=== PATIENT | female | born 1980 | race African-American/Black ===

== ENCOUNTER 2016-03-15 17:01 | Emergency (ER) | payer SELFPAY ==
--- NOTE | 2016-03-15 20:11 | ER Document Report ---
ED General - General Chief Complaint: Abscess Stated Complaint: POSSIBLE VAGINAL ABSCESS Information source: Patient TRAVEL OUTSIDE OF THE [place] IN LAST 30 DAYS: No - HPI Onset: Yesterday Quality of pain: Burning, Throbbing Severity: Mild Pain Level: 2 Context: WEEPINING LESIONS TO GRION AREA FOR SEVERAL DAYS HISTORY OF THE SAME WITH FOLICULITIS - Related Data Allergies/Adverse Reactions: No Known Allergies Allergy (Verified 03/15/16 18:49) Past Medical History - Social History Smoking Status: Current Every Day Smoker Chew tobacco use (# tins/day): No Frequency of alcohol use: None Drug Abuse: None Family History: None Patient has suicidal ideation: No Patient has homicidal ideation: No - Past Medical History Cardiac Medical History: Reports: Hx Hypertension Pulmonary Medical History: Reports: Hx COPD Neurological Medical History: Denies: Hx Seizures Skin Medical History: Reports Hx MRSA Past Surgical History: Reports: Hx Orthopedic Surgery - LEFT SHOULDER; RIGHT GREAT TOE (MRSA) - Immunizations Hx Diphtheria, Pertussis, Tetanus Vaccination: Yes Review of Systems - Review of Systems Constitutional: No symptoms reported EENT: No symptoms reported Cardiovascular: No symptoms reported Respiratory: No symptoms reported Gastrointestinal: No symptoms reported Genitourinary: No symptoms reported Female Genitourinary: No symptoms reported Musculoskeletal: No symptoms reported Skin: Other - WEEPING LESIONS TO GRION Hematologic/Lymphatic: Other Neurological/Psychological: No symptoms reported Physical Exam - Vital signs Vitals: Temp Pulse Resp BP Pulse Ox 98.0 F 106 H 18 124/88 H 99 03/15/16 17:10 03/15/16 17:10 03/15/16 17:10 03/15/16 17:10 03/15/16 17:10 Interpretation: Normal - General General appearance: Appears well, Alert - HEENT Head: Normocephalic, Atraumatic Eyes: Normal Pupils: PERRL - Respiratory Respiratory status: No respiratory distress Chest status: Nontender Breath sounds: Normal Chest palpation: Normal - Cardiovascular Rhythm: Regular Heart sounds: Normal auscultation Murmur: No - Abdominal Inspection: Normal Distension: No distension Bowel sounds: Normal Tenderness: Nontender Organomegaly: No organomegaly - Back Back: Normal, Nontender - Extremities General upper extremity: Normal inspection, Nontender, Normal color, Normal ROM , Normal temperature General lower extremity: Normal inspection, Nontender, Normal color, Normal ROM , Normal temperature, Normal weight bearing. No: Chelsy's sign - Neurological Neuro grossly intact: Yes Cognition: Normal Orientation: AAOx4 James Coma Scale Eye Opening: Spontaneous [place] Coma Scale Verbal: Oriented [place] Coma Scale Motor: Obeys Commands James Coma Scale Total: 15 Speech: Normal Motor strength normal: LUE, RUE, LLE, RLE Sensory: Normal - Psychological Associated symptoms: Normal affect, Normal mood - Skin Skin Temperature: Warm - Folliculitis to right groin Skin Moisture: Dry Skin Color: Normal Course - Vital Signs Vital signs: Temp Pulse Resp BP Pulse Ox 98.0 F 106 H 18 124/88 H 99 03/15/16 17:10 03/15/16 17:10 03/15/16 17:10 03/15/16 17:10 03/15/16 17:10 Discharge - Discharge Clinical Impression: Folliculitis Disposition: HOME, SELF-CARE Instructions: Trimethoprim-Sulfa ([facility]) Additional Instructions: Warm compresses 4-5 times a day. Follow-up with private doctor in 1 to 2 days for final radiology readings please return to the emergency room for any change worsening condition. Follow up with private M.D. for all other routine health care needs. Prescriptions: Tramadol HCl [Ultram 50 mg Tablet] 50 mg PO Q4HP PRN #60 tab PRN Reason: Sulfamethoxazole/Trimethoprim [Septra-Ds 800-160 mg Tablet] 0.5 tab PO BID #20 tablet
[2016-03-15 20:18] VITALS: BP 118/78
== END 2016-03-15 20:31 | disposition home or self-care (01) ==
LOC: ER 17:01
DX: L73.9 Follicular disorder, unspecified (principal); N76.0 Acute vaginitis; F17.210 Nicotine dependence, cigarettes, uncomplicated
CPT/HCPCS: 99282